=== PATIENT | female | born 1990 | race Caucasian/White ===

== ENCOUNTER → 2021-09-05 | Day surgery (SDC) | payer OTHER ==
[~2021-09-05] VITALS: Ht 170.2 cm; Wt 59.0 kg
[~2021-09-05] MED LIST: UNISOM50 MG PO; Z QUIL
[2021-09-05 09:37] LABS: HCG (URINE) SCREEN NEGATIVE (NEGATIVE)
[2021-09-05 10:20] LABS: EOSINOPHIL 1.5 % (0-5); HCT 42.4 % (37.0-47.0); HGB 14.1 g/dl (12.5-16.0); LYMPHOCYTE 24.1 % (15-48); MCH 29.6 pg (25.0-31.0); MCHC 33.3 g/dL (32.0-36.0); MCV 89.1 fL (78.0-100.0); MONOCYTE 6.3 % (0-12); MPV 10.5 fL (6.0-9.5); NEUTROPHIL 66.7 % (41-80); NRBC 0; PLT 234 K/uL (150-400); RBC 4.76 M/uL (4.20-5.40); RDW 12.4 % (11.5-14.0); WBC 8.3 K/uL (4.0-10.5)
[2021-09-05 10:28] LABS: INR 1.02 (0.9-1.2); PROTHROMBIN TIME 13.1 SECONDS (11.9-13.9); PTT 28.5 SECONDS (24.9-34.6)
== END | disposition home or self-care (01) ==
LOC: FAS 09:18
PROVIDERS: Oral & Maxillofacial Surgery
DX: K02.9 Dental caries, unspecified (principal); K04.7 Periapical abscess without sinus; M27.0 Developmental disorders of jaws; F41.9 Anxiety disorder, unspecified; F17.210 Nicotine dependence, cigarettes, uncomplicated; Z20.822 Contact with and (suspected) exposure to COVID-19
CPT/HCPCS: 21031; D7140; D7210; D7310; 36415; 84703; 85025; 85610; 85730; J1100; J1170; J2250; J2405; J2704; J3010; J7120; U0002